=== PATIENT | female | born 1955 | race Caucasian/White ===

== ENCOUNTER 2022-04-18 13:30 | Outpatient (CLI) | payer MEDICARE, SELFPAY ==
--- NOTE | 2022-04-18 13:40 | XR_ITS ---
WS: [id number] DEXA (DUAL ENERGY X-RAY ABSORPTIOMETRY) Bone mineral density was performed using a [employer] machine. HISTORY: OSTEOPOROSIS COMPARISON: None available. Lumbar spine BMD (L1-L4): 0.866 T score: -2.8 Z score: -0.8 Total hip BMD: Left: 0.437 g/cm2. T score: -4.5 Z score: -3.0 Right: 0.568 g/cm2. T score: -3.5 Z score: -2.0 10 year probability of a major osteoporotic fracture is 27.2 XR/XR DEXA axial skeleton* [id number] IMPRESSION: OSTEOPOROSIS based upon the WHO classification for females.
== END 2022-04-18 13:31 | disposition home or self-care (01) ==
PROVIDERS: PCP Family Medicine; Visit Provider Family Medicine
DX: M81.0 Age-related osteoporosis without current pathological fracture (principal)
CPT/HCPCS: 77080

== ENCOUNTER 2024-11-07 14:07 | Outpatient (CLI) | payer MEDICARE, SELFPAY ==
--- NOTE | 2024-11-07 14:08 | XR_ITS ---
WS: [id number] SCREENING DEXA SCAN [place] CLINICAL INFORMATION: POSTMENOPAUSAL COMPARISON: 2021 FINDINGS: The L1-L4 bone mineral density measures 0.812 g/cm2. This corresponds to a T score score of -3.1 and Z score of -1.1. Left femoral neck bone mineral density measures 0.639 g/cm2. This corresponds to a T score of -2.9 and Z score of -1.3. Right femoral neck bone mineral density measures 0.530 g/cm2. This corresponds to a T score -3.8of and Z score of -2.1. Mean femoral neck bone mineral density measures 0.584 g/cm2. This corresponds to a T score of -3.4 and Z score of -1.7. XR/XR DEXA axial skeleton* [id number] IMPRESSION: Osteoporosis lumbar spine. Osteoporosis femoral necks. Patient's FRAX calculated 10 year probability for major osteoporotic fracture i s 18.9% and osteoporotic hip fracture is 6.8%.
== END 2024-11-07 14:08 | disposition home or self-care (01) ==
LOC: RAD 14:07
PROVIDERS: PCP Family Medicine; Visit Provider Family Medicine
DX: Z78.0 Asymptomatic menopausal state (principal); M81.0 Age-related osteoporosis without current pathological fracture
CPT/HCPCS: 77080